=== PATIENT | male | born 1945 | race Caucasian/White ===

== ENCOUNTER 2019-01-03 17:26 | Inpatient (IN) | payer MEDICARE, OTHER ==
[~2019-01-03] VITALS: Ht 180.3 cm; Wt 131.5 kg
[2019-01-03 17:57] LABS: BASOPHILS # (AUTO) 0.1 (0.0-0.1); BASOPHILS % 0.6 % (0.0-1.0); EOSINOPHILS # (AUTO) 0.2 (0.0-0.4); EOSINOPHILS % 1.8 % (0.0-6.0); LYMPHOCYTES # (AUTO) 2.1 (1.0-3.2); MEAN CORPUSCULAR HEMOGLOBIN 28.3 pg (28-32); MEAN CORPUSCULAR HGB CONC 33.3 g/dL (31-35); MONOCYTES # (AUTO) 0.8 (0.2-0.8); MONOCYTES % 8.1 % (4.4-11.3); NEUTROPHILS # (AUTO) 6.6 (2.1-6.9); NEUTROPHILS % 67.6 % (38.7-80.0); PLATELET COUNT 248 x10e3/uL (140-360); RED BLOOD COUNT 4.59 x10e6/uL (4.3-5.7)
[2019-01-03] MEDS ORDERED: SODIUM CHLORIDE 0.9% 1000ML 1,000 ML IV SCH (18:03)
[2019-01-03 18:08] LABS: INR 1.02; PROTHROMBIN TIME 13.9 seconds (11.9-14.5)
[2019-01-03 18:18] LABS: ALANINE AMINOTRANSFERASE 18 IU/L (0-55); ALBUMIN 3.8 g/dL (3.5-5.0); ALBUMIN/GLOBULIN RATIO 1.3 (0.8-2.0); ALKALINE PHOSPHATASE 87 IU/L (40-150); ANION GAP 15.1 mmol/L (8-16); BLOOD UREA NITROGEN 15 mg/dL (7-26); BUN/CREATININE RATIO 19 (6-25); CALCIUM 9.6 mg/dL (8.4-10.2); CARBON DIOXIDE 24 mmol/L (22-29); CHLORIDE 104 mmol/L (98-107); EST GLOMERULAR FILTRATION RATE > 60 ML/MIN (60-); GLUCOSE 109 mg/dL (74-118); POTASSIUM 4.1 mmol/L (3.5-5.1); SODIUM 139 mmol/L (136-145)
[2019-01-03 19:30] VITALS: BP 132/74
[2019-01-03 20:00] VITALS: BP 132/74
[2019-01-03] MEDS ORDERED: HYDRALAZINE HCL 20 MG/ML VIAL IV PRN (20:00)
[2019-01-03] MEDS ORDERED: ACETAMINOPHEN/CODEINE 300MG - 30MG TAB PO PRN (20:00)
[2019-01-03] MEDS ORDERED: ACETAMINOPHEN 325 MG TAB PO PRN (20:00)
[2019-01-03 22:25] VITALS: BP 132/74
[2019-01-04] VITALS (8 sets, daily range): BP systolic 115–156; BP diastolic 57–80
[2019-01-04 02:43] LABS: HEMATOCRIT 31.7 % (38.2-49.6); HEMOGLOBIN 10.4 g/dL (14.0-18.0)
[2019-01-04 03:01] LABS: CREATINE KINASE MB 1.5 ng/mL (0-5.0)
[2019-01-04] MEDS ORDERED: DILTIAZEM HCL 5 MG/ML 5 ML VIAL IV STA ×2 (04:02→07:01)
[2019-01-04] MEDS ORDERED: SODIUM CHLORIDE 0.9% 250ML 250 ML IV ONE (06:00)
[2019-01-04 06:14] LABS: BASOPHILS # (AUTO) 0.1 (0.0-0.1); BASOPHILS % 0.3 % (0.0-1.0); EOSINOPHILS % 0.1 % (0.0-6.0); HEMATOCRIT 27.3 % (38.2-49.6); HEMOGLOBIN 8.9 g/dL (14.0-18.0); LYMPHOCYTES # (AUTO) 1.4 (1.0-3.2); MEAN CORPUSCULAR HEMOGLOBIN 28.3 pg (28-32); MEAN CORPUSCULAR HGB CONC 32.6 g/dL (31-35); MEAN CORPUSCULAR VOLUME 86.9 fL (81-99); MONOCYTES # (AUTO) 0.7 (0.2-0.8); MONOCYTES % 4.1 % (4.4-11.3); NEUTROPHILS # (AUTO) 13.5 (2.1-6.9); NEUTROPHILS % 84.8 % (38.7-80.0); PLATELET COUNT 286 x10e3/uL (140-360); RED BLOOD COUNT 3.14 x10e6/uL (4.3-5.7); RED CELL DISTRIBUTION WIDTH 14.1 % (11.7-14.4)
[2019-01-04 06:37] LABS: ANION GAP 16.2 mmol/L (8-16); BLOOD UREA NITROGEN 17 mg/dL (7-26); BUN/CREATININE RATIO 20 (6-25); CALCIUM 8.4 mg/dL (8.4-10.2); CARBON DIOXIDE 17 mmol/L (22-29); CHLORIDE 110 mmol/L (98-107); CREATININE, SERUM 0.87 mg/dL (0.72-1.25); EST GLOMERULAR FILTRATION RATE > 60 ML/MIN (60-); GLUCOSE 190 mg/dL (74-118); POTASSIUM 4.2 mmol/L (3.5-5.1); SODIUM 139 mmol/L (136-145)
[2019-01-04] MEDS ORDERED: METOPROLOL TARTRATE 50 MG TAB PO ONE (07:15)
[2019-01-04] MEDS ORDERED: GABAPENTIN300 MG PO (07:57)
[2019-01-04] MEDS ORDERED: DIGOXIN125 MCG PO (07:57)
[2019-01-04] MEDS ORDERED: ELIQUIS PO (07:57)
[2019-01-04] MEDS ORDERED: FLOMAX0.4 MG PO (07:57)
[2019-01-04] MEDS ORDERED: TIZANIDINE HCL4 MG PO (07:57)
[2019-01-04] MEDS ORDERED: METOPROLOL TART50 MG PO (07:57)
[2019-01-04] MEDS ORDERED: PLAVIX75 MG PO (07:57)
[2019-01-04] MEDS ORDERED: ATORVASTATIN CA20 MG PO (07:57)
[2019-01-04] MEDS: PANTOPRAZOLE 40 MG 10ML VIAL IV SCH (08:12)
[2019-01-04 10:51] LABS: HEMATOCRIT 28.3 % (38.2-49.6); HEMOGLOBIN 9.1 g/dL (14.0-18.0)
[2019-01-04] MEDS ORDERED: SODIUM CHLORIDE 0.9% 250ML 250 ML ONE ×2 (15:31→22:52)
[2019-01-04] MEDS: METOPROLOL TARTRATE 50 MG TAB PO SCH (17:26)
[2019-01-04] MEDS: GABAPENTIN 300 MG CAP PO SCH (17:26)
[2019-01-04] MEDS ORDERED: PEG (High)/E-LYTE SOLN 4,000 ML BTL PO SCH (18:30)
[2019-01-04 19:14] LABS: HEMOGLOBIN 7.3 g/dL (14.0-18.0)
--- NOTE | 2019-01-04 20:25 | History and Physical ---
PRIMARY CARE DOCTOR: Dr. Kirkpatrick at [facility]. LIBRARY SCIENCE PROFESSOR: Dr. Sidhu from [facility] as well. CONSULTING PHYSICIANS: 1. Sarika Harris MD with Cardiology. 2. Baltazar Nathan MD with GI specialist. CHIEF COMPLAINT: Bright red blood per rectum, status post polypectomy on 12/24/2018. HISTORY OF PRESENT ILLNESS: This is a 73-year-old male with past medical history of atrial fibrillation, high cholesterol, PVD, CAD status post stent x3, and sleep apnea, presented to the ER with complaints of bright red rectal bleeding around 3:00 p.m. yesterday. He reports having a colonoscopy on December 24, 2018, where he had polyps taken out about 10. He is on Plavix and Eliquis for atrial fibrillation. He also was told to resume his blood thinners 3 day later, which was on the 27 of December and so he has been taking Eliquis and Plavix for the past 7 days before he noticed the bleeding yesterday. He denies any abdominal pain, any fever, chills, nausea, vomiting, dizziness, shortness of breath, palpitations or chest pains. No hematuria noted or dysuria. In the ER upon admission, his hemoglobin was 13.0. Creatinine 0.8, BUN 15, potassium 4.1, sodium 139, troponin negative. PT, INR were within normal limits. APTT was 37, but the patient is currently on Eliquis. So, he is admitted in the hospital for observation about GI bleed. Consent reviewed. PAST MEDICAL HISTORY: 1. Atrial fibrillation with RVR. 2. History of PVD. 3. CAD with stent x3. 4. Sleep apnea. PAST SURGICAL HISTORY: Cardiac stents x3 and tonsillectomy. FAMILY HISTORY: He reports mother has uterine cancer and does not know about his father. SOCIAL HISTORY: He quit smoking 25 years ago and smoked for 30 years about 2 packs per day. He reports occasional alcohol use, beer about 3 to 4 per week or when going out and he denies any illicit drug use. REVIEW OF SYSTEMS: GENERAL: No acute distress. HEENT: No mouth sores. LUNGS: No shortness of breath. HEART: No palpitation or chest pain. GI: Had melena, bright red blood. NEUROLOGIC: Alert and oriented. MUSCULOSKELETAL: No pain with range of motion. SKIN: Intact. No gross abnormality. PHYSICAL EXAMINATION: VITAL SIGNS: Temperature is 95.8, pulse is 137, blood pressure is 119/60, respirations 20, SpO2 98%. LABORATORY DATA: Sodium 139, potassium 4.2, CO2 is 17, creatinine 0.87. White blood cells 15.9, hemoglobin 9.1, troponin 0.002. PT 13.9, PTT 37, INR 1.02. GENERAL: Appears to be in no acute distress. HEENT: Normocephalic, atraumatic. LUNGS: Clear to auscultation. CARDIOVASCULAR: Irregular rate and rhythm. GI: Mild abdominal discomfort. He has still bright red bowel movements x4. NEUROLOGIC: Alert, awake, oriented x3. MUSCULOSKELETAL: Moves all extremities. SKIN: Dry and discoloration noted in the lower extremities due to PVD. IMPRESSION: 1. Acute GI bleed, status post recent polypectomy. 2. Atrial fibrillation with rapid ventricular response. 3. Coronary artery disease, status post stent x3. 4. Hyperlipidemia. 5. Peripheral vascular disease. 6. Sleep apnea. PLAN: We will continue to monitor H and H closely, IV fluids for hydration, resume his home medications for atrial fibrillation, metoprolol and digoxin were restarted. We will hold anticoagulation until seen by GI. GI has been consulted and Cardiology also for atrial fibrillation with RVR. He was given Cardizem IV times x1, further recommendations to follow. Dictated by LEONCIO Condon Zeferino Her MD MY/MODL /[id number]
[2019-01-04] MEDS ORDERED: ATORVASTATIN 20 MG TAB PO SCH (21:00)
[2019-01-04] MEDS ORDERED: FUROSEMIDE INJ 10 MG/ML 2 ML VIAL IV ONE (22:15)
--- NOTE | 2019-01-04 23:11 | Consultation ---
DATE OF CONSULTATION: 01/04/2019 Cardiology Consultation REASON FOR CONSULTATION: Atrial fibrillation. HISTORY OF PRESENT ILLNESS: Mr. Marquez is a 73-year-old gentleman with past medical history of hypertension, hypercholesteremia, BPH, CAD with prior history of PCI x3 most recently in May 2018, and chronic atrial fibrillation, on systemic anticoagulant therapy with Eliquis. He was in his usual state of health up until December 24, 2018. He stopped his anti-platelet and anticoagulant therapy for a prescribed amount of time and had a colonoscopy on December 24, 2018; three days afterwards the patient restarted anticoagulant therapy. He was in his usual state of health up until yesterday where he started having cramping abdominal pain. Eventually, this progressed and he started having loose stools associated with severe lower quadrant irritation and upon wiping he noted blood clots and bright red blood per rectum. He continuously had ongoing bleeding throughout the day and last bowel movement an hour ago, still with some blood clots. His last anticoagulant dose with Eliquis was yesterday morning and his last Plavix dose was the night before that. He has received so for platelet transfusion and the patient feels okay. Earlier on in the night, the patient had complaint of dizziness upon standing and felt that his heart was racing and was in atrial fibrillation with rapid ventricular response. Currently, heart rate is under more reasonable control in the s. He is on digoxin and metoprolol therapy. Thus far he knows, he remains in chronic atrial fibrillation. The patient denies any chest pain. He has exertional dyspnea, class III; two pillow use; no PND. PAST MEDICAL HISTORY: 1. Hypertension, essential. 2. Hypercholesteremia. 3. CAD with prior history of PCI x3, most recently in May 2018. 4. History of chronic atrial fibrillation, on anticoagulant therapy with Eliquis. PAST SURGICAL HISTORY: 1. History of tonsillectomy. 2. History of knee aspiration as a kid. 3. History of stents x3. 4. History of colonoscopy, most recently on December 24, 2018. FAMILY HISTORY: Mother at 81 years of age from old age. Father in his mid 70s of unknown cause. SOCIAL HISTORY: He is a former smoker, quit 25 years ago. Denies any alcohol or illicit drug use. ALLERGIES: NO KNOWN DRUG ALLERGIES. HOME MEDICATIONS: Include: 1. Flomax 0.4 mg daily. 2. Metoprolol 100 mg b.i.d. 3. Atorvastatin 20 mg daily. 4. Digoxin 0.125 mg daily. 5. Plavix 75 mg daily. 6. Eliquis 5 mg p.o. b.i.d. REVIEW OF SYSTEMS: GENERAL: Denies any fevers or chills. Positive for fatigue and malaise. HEENT: No headaches, visual complaints, sore throat, or stuffy nose. RESPIRATORY: Denies any pleuritic chest pain. He has class III exertional dyspnea. CARDIOVASCULAR: As per HPI. GI: Positive for abdominal pain, lower abdominal cramping, and bright red blood prior per rectum noted. No melena. No vomiting. Heme positive for bleeding and easy bruising. : Denies any dysuria, pyuria, or change in urinary frequency. MUSCULOSKELETAL: Positive for arthritis and chronic venous stasis issues. ENDOCRINE: Denies any heat or cold intolerance. NEUROLOGIC: Denies any focal weakness. Positive for lightheadedness. No syncope. Remainder of review of systems negative otherwise as mentioned. PHYSICAL EXAMINATION: VITAL SIGNS: Height of 71 inches, weight of 283 pounds, BMI is 39.5. Temperature of 97.5, pulse 94, respiratory rate of 16, blood pressure 142/74, and O2 saturation 100% on room air. GENERAL: This is a well-nourished, well-developed gentleman, who is currently in no apparent distress. HEENT: Normocephalic and atraumatic. Pupils are equal, round, and reactive to light. Extraocular movements are intact. Oropharynx is clear. NECK: No elevation of jugular venous pulsation. No carotid bruits. CARDIOVASCULAR: Irregularly irregular rate and rhythm. Normal S1, S2. Soft 2/6 systolic murmur at the left lower sternal border. LUNGS: Show diminished bibasilar breath sounds and no crackles. ABDOMEN: Soft, nontender, obese, with hyperactive bowel sounds. No hepatosplenomegaly. BACK: No costovertebral angle tenderness. EXTREMITIES: Warm with 1+ pedal pulses. There is extensive lipo-dermatosclerotic changes, right greater than left lower extremity with 1+ edema as well. NEUROLOGIC: Cranial nerves II through XII are grossly intact. Strength is 5/5, grossly nonfocal. PSYCH: Normal fluent speech. Appropriate affect. No anxiety or delusions. LABORATORY DATA: White count of 16, hemoglobin 8.9, hematocrit 27.3, and platelets of 286. Sodium 139, potassium 4.2, chloride 110, bicarb 17, BUN 17, creatinine 0.87, glucose of 190, and calcium of 8.4. AST 16, ALT 18, alkaline phosphatase 87, total protein 6.8, albumin 3.8. Troponin 0.002. INR is 1.02. IMAGING STUDIES: No imaging studies noted. EKG reveals atrial fibrillation, LVH and nonspecific ST-T wave changes in the lateral precordial leads. DIAGNOSES: 1. Dizziness, near syncope secondary to acute blood loss anemia. 2. Active lower gastrointestinal bleeding, likely etiology is anticoagulant use in the setting of recent multiple polypectomy procedures. 3. Coronary artery disease. 4. Chronic atrial fibrillation. 5. Obesity. RECOMMENDATIONS: 1. From a Cardiovascular standpoint, we will recommend continued rhythm control therapy for his atrial fibrillation with digoxin and metoprolol therapy. 2. The patient has already received platelet transfusion to hopefully help counteract some of the anti-platelet effect. 3. There is no good antidote for the Eliquis therapy and is supportive treatment for now. 4. Monitor serial hemoglobin and hematocrit. 5. Appreciate GI who is on-board for management aid. 6. We will continue holding anti-platelet, anticoagulant therapies at this time as this is not safe. 7. The patient is cleared for any necessary procedures to help his source control of his bleeding. 8. Telemetry monitoring. 9. Check echocardiogram to evaluate left ventricular function. 10. We will continue to follow. Thank you for this referral. MD SILVANO Brown/KAMILLA /[id number]
[2019-01-05] VITALS (7 sets, daily range): BP systolic 101–169; BP diastolic 51–70
[2019-01-05] MEDS ORDERED: FUROSEMIDE INJ 10 MG/ML 2 ML VIAL ONE (02:11)
--- NOTE | 2019-01-05 05:53 | Diagnostic Imaging Report ---
EXAMINATION: CHEST SINGLE (PORTABLE) COMPARISON: None INDICATION: ^preop cxr for colonoscopy today. ^20190105 ^0525 ^Y DISCUSSION: Frontal view of the chest obtained at 0522 hours. HEART AND MEDIASTINUM: The heart is enlarged. The aorta is tortuous with calcifications of the arch LINES: None. LUNGS: The lungs are well inflated and clear. No pneumonia or pulmonary edema. PLEURA: No pleural effusion or pneumothorax. BONES AND SOFT TISSUES: No focal osseous lesion. The soft tissues are normal. IMPRESSION: Cardiomegaly without vascular congestion. No acute pulmonary process. Signed by: Dr. Flora Ferraro MD on 01/05/2019 5:50 AM
[2019-01-05 06:08] LABS: BASOPHILS # (AUTO) 0.1 (0.0-0.1); BASOPHILS % 0.4 % (0.0-1.0); EOSINOPHILS # (AUTO) 0.1 (0.0-0.4); EOSINOPHILS % 0.4 % (0.0-6.0); HEMATOCRIT 26.1 % (38.2-49.6); HEMOGLOBIN 8.9 g/dL (14.0-18.0); LYMPHOCYTES # (AUTO) 2.8 (1.0-3.2); LYMPHOCYTES % 16.6 % (18.0-39.1); MEAN CORPUSCULAR HEMOGLOBIN 29.6 pg (28-32); MEAN CORPUSCULAR HGB CONC 34.1 g/dL (31-35); MEAN CORPUSCULAR VOLUME 86.7 fL (81-99); MONOCYTES # (AUTO) 1.6 (0.2-0.8); MONOCYTES % 9.3 % (4.4-11.3); NEUTROPHILS # (AUTO) 11.9 (2.1-6.9); NEUTROPHILS % 71.6 % (38.7-80.0); PLATELET COUNT 274 x10e3/uL (140-360); RED BLOOD COUNT 3.01 x10e6/uL (4.3-5.7); RED CELL DISTRIBUTION WIDTH 14.6 % (11.7-14.4)
[2019-01-05 06:26] LABS: ANION GAP 18.7 mmol/L (8-16); BLOOD UREA NITROGEN 16 mg/dL (7-26); BUN/CREATININE RATIO 20 (6-25); CALCIUM 8.8 mg/dL (8.4-10.2); CARBON DIOXIDE 23 mmol/L (22-29); CHLORIDE 99 mmol/L (98-107); CREATININE, SERUM 0.82 mg/dL (0.72-1.25); EST GLOMERULAR FILTRATION RATE > 60 ML/MIN (60-); GLUCOSE 132 mg/dL (74-118); POTASSIUM 3.7 mmol/L (3.5-5.1); SODIUM 137 mmol/L (136-145)
[2019-01-05] MEDS: METOPROLOL TARTRATE 50 MG TAB PO SCH ×2 (08:40→16:53)
[2019-01-05] MEDS: DIGOXIN 0.125 MG TAB PO SCH (08:40)
[2019-01-05] MEDS: TAMSULOSIN HCL 0.4 MG CAP PO SCH (08:40)
[2019-01-05] MEDS: GABAPENTIN 300 MG CAP PO SCH ×2 (08:41→16:53)
[2019-01-05 09:19] LABS: BASOPHILS % 0.3 % (0.0-1.0); EOSINOPHILS # (AUTO) 0.1 (0.0-0.4); EOSINOPHILS % 0.7 % (0.0-6.0); HEMATOCRIT 23.2 % (38.2-49.6); HEMOGLOBIN 7.9 g/dL (14.0-18.0); LYMPHOCYTES # (AUTO) 1.9 (1.0-3.2); LYMPHOCYTES % 14.6 % (18.0-39.1); MEAN CORPUSCULAR HEMOGLOBIN 29.3 pg (28-32); MEAN CORPUSCULAR HGB CONC 34.1 g/dL (31-35); MEAN CORPUSCULAR VOLUME 85.9 fL (81-99); MONOCYTES # (AUTO) 1.2 (0.2-0.8); MONOCYTES % 9.4 % (4.4-11.3); NEUTROPHILS # (AUTO) 9.4 (2.1-6.9); NEUTROPHILS % 71.8 % (38.7-80.0); PLATELET COUNT 214 x10e3/uL (140-360); RED CELL DISTRIBUTION WIDTH 14.5 % (11.7-14.4)
[2019-01-05 09:44] LABS: ANION GAP 15.5 mmol/L (8-16); BLOOD UREA NITROGEN 15 mg/dL (7-26); BUN/CREATININE RATIO 20 (6-25); CALCIUM 8.4 mg/dL (8.4-10.2); CARBON DIOXIDE 25 mmol/L (22-29); CHLORIDE 98 mmol/L (98-107); CREATININE, SERUM 0.75 mg/dL (0.72-1.25); EST GLOMERULAR FILTRATION RATE > 60 ML/MIN (60-); GLUCOSE 114 mg/dL (74-118); POTASSIUM 3.5 mmol/L (3.5-5.1); SODIUM 135 mmol/L (136-145)
[2019-01-05] MEDS ORDERED: SODIUM CHLORIDE 0.9% 250ML 250 ML ONE (10:37)
[2019-01-05] MEDS: PANTOPRAZOLE 40 MG 10ML VIAL IV SCH (11:23)
--- NOTE | 2019-01-05 14:13 | Progress Note ---
DATE: 01/05/2019 CONSULTING PHYSICIANS: 1. Dr. Sarika Harris with Cardiology. 2. Dr. Baltazar Nathan with GI. CHIEF COMPLAINT: Rectal bleeding. REVIEW OF SYSTEMS: GENERAL: In no acute distress. HEENT: No visual loss or head trauma. LUNGS: Shortness of breath when lying down. No cough. CARDIOVASCULAR: No palpitations or chest discomfort. ABDOMEN: No nausea, vomiting. Completed bowel prep for colonoscopy. NEURO: Alert and oriented. MUSCULOSKELETAL: No weakness or dizziness. SKIN: Intact and dry. PHYSICAL EXAMINATION: VITAL SIGNS: Temperature 96.0, pulse is 106, blood pressure 169/70, respirations 20, and SpO2 is 98% on 2 L of oxygen via nasal cannula. GENERAL: Alert, awake, and in no acute distress. HEENT: Normocephalic, atraumatic. PERRLA. LUNGS: Diminished breath sounds. CARDIOVASCULAR: Irregular heart rate and rhythm. ABDOMEN: Soft and nontender, but obese. NEURO: Alert, awake, and oriented x3. MUSCULOSKELETAL: Active ROM, no edema noted in the extremities. SKIN: Dry and intact. LABORATORY DATA: Sodium 135, potassium 3.5, chloride 98, CO2 of 25, BUN is 15, creatinine is 0.75. WBCs 13.0, hemoglobin 7.9, hematocrit 23.2, and platelet 214. Chest x-ray, cardiomegaly without vascular congestion or no acute pulmonary process. IMPRESSION: 1. Acute gastrointestinal bleed, status post 2 units of PRBCs and 2 units of platelets. 2. Atrial fibrillation with rapid ventricular response. 3. Coronary artery disease with history of stents. 4. High cholesterol. 5. Peripheral vascular disease. 6. History of sleep apnea. PLAN: Plan is to continue to keep the patient n.p.o. for colonoscopy today per GI. We will continue to monitor H and H closely. Hemoglobin is 7.9, we will repeat one in 6 hours and transfuse as needed. He is status post 2 units of PRBCs and 2 units of platelets. We will hold all anticoagulation for now. Further recommendations to follow. Dictated by LEONCIO Condon Alexiaching Justin Her MD MY/MODL /[id number]
[2019-01-05] MEDS ORDERED: GLUCAGON FOR INJ 1 MG VIAL ONE (17:44)
[2019-01-05] MEDS ORDERED: PROPOFOL IV EMULSION 10 MG/ML 50 ML VIAL ONE (17:44)
[2019-01-05] MEDS ORDERED: LIDOCAINE HCL 2% LOCAL INJ 5 ML SDV VIAL INJ ONE (17:44)
[2019-01-05] MEDS ORDERED: FENTANYL CITRATE/PF 100MCG/2 ML INJ ONE (18:29)
[2019-01-05] MEDS ORDERED: ATORVASTATIN 40 MG TAB PO SCH (21:00)
[2019-01-06] VITALS (7 sets, daily range): BP systolic 105–144; BP diastolic 51–79
--- NOTE | 2019-01-06 01:47 | Operative Report ---
DATE OF PROCEDURE: 01/05/2019 SURGEON: Baltazar Nathan MD PROCEDURE: Colonoscopy with hemoclip of large polypectomy site. OTHER PRIMARY CARE PHYSICIAN SERVICE: Dr. Mathieu Kirkpatrick. MEDICATIONS: The patient was done under MAC, please see anesthesiologist's note. INDICATION FOR PROCEDURES: Post polypectomy bleed. PROCEDURE IN DETAIL: With the patient in the left lateral decubitus position, a flexible fiberoptic Olympus colonoscope was inserted into the rectum with ease and advanced all the way to the cecum. A large polypectomy site was noted in the cecum with a visible vessel in the crater along with 2 flat red spots. There was no active bleeding. The site was closed with 3 size 16 hemoclips. The scope was then withdrawn slowly and diverticular disease was noted throughout the colon. No actively bleeding site was noted. The scope was then retroflexed into the distal rectum and small internal hemorrhoids were noted, none of which was actively bleeding. The scope was then straightened out, it was subsequently withdrawn. The patient tolerated the procedure well. IMPRESSION: 1. Large polypectomy site cecum with stigmata of recent hemorrhage, hemoclipped with size 16 clips x3. 2. Pandiverticulosis. 3. Internal hemorrhoids, none actively bleeding. PLAN: Follow H and H. Initiate full liquid diet. Baltazar Nathan MD [facility]MODL /[id number] cc: MD Zeferino Aponte MD
[2019-01-06] MEDS: PANTOPRAZOLE 40 MG 10ML VIAL IV SCH (08:15)
[2019-01-06] MEDS: TAMSULOSIN HCL 0.4 MG CAP PO SCH (08:15)
[2019-01-06] MEDS: METOPROLOL TARTRATE 50 MG TAB PO SCH (08:16)
[2019-01-06] MEDS: DIGOXIN 0.125 MG TAB PO SCH (08:16)
[2019-01-06] MEDS: GABAPENTIN 300 MG CAP PO SCH (08:16)
[2019-01-06 09:38] LABS: BASOPHILS # (AUTO) 0.1 (0.0-0.1); BASOPHILS % 0.4 % (0.0-1.0); EOSINOPHILS # (AUTO) 0.1 (0.0-0.4); EOSINOPHILS % 0.8 % (0.0-6.0); HEMOGLOBIN 7.7 g/dL (14.0-18.0); LYMPHOCYTES # (AUTO) 1.6 (1.0-3.2); LYMPHOCYTES % 13.5 % (18.0-39.1); MEAN CORPUSCULAR HEMOGLOBIN 29.4 pg (28-32); MEAN CORPUSCULAR HGB CONC 33.5 g/dL (31-35); MEAN CORPUSCULAR VOLUME 87.8 fL (81-99); MONOCYTES % 8.7 % (4.4-11.3); NEUTROPHILS # (AUTO) 8.9 (2.1-6.9); NEUTROPHILS % 74.5 % (38.7-80.0); PLATELET COUNT 256 x10e3/uL (140-360); RED BLOOD COUNT 2.62 x10e6/uL (4.3-5.7); RED CELL DISTRIBUTION WIDTH 14.9 % (11.7-14.4)
[2019-01-06 09:51] LABS: ANION GAP 15.3 mmol/L (8-16); BLOOD UREA NITROGEN 10 mg/dL (7-26); BUN/CREATININE RATIO 12 (6-25); CALCIUM 8.8 mg/dL (8.4-10.2); CARBON DIOXIDE 23 mmol/L (22-29); CHLORIDE 104 mmol/L (98-107); CREATININE, SERUM 0.81 mg/dL (0.72-1.25); EST GLOMERULAR FILTRATION RATE > 60 ML/MIN (60-); GLUCOSE 126 mg/dL (74-118); POTASSIUM 3.3 mmol/L (3.5-5.1); SODIUM 139 mmol/L (136-145)
[2019-01-06 10:19] LABS: BAND NEUTROPHILS % (MANUAL) 3 %; LYMPHOCYTES % (MANUAL) 17 % (19-48); MONOCYTES % (MANUAL) 12 % (3.4-9.0); NEUTROPHILS % (MANUAL) 68 % (40-74)
[2019-01-06 10:20] LABS: PLATELET ESTIMATE ADEQUATE; PLATELET MORPHOLOGY COMMENT NORMAL; RBC MORPHOLOGY COMMENT NORMAL
[2019-01-06] MEDS ORDERED: POTASSIUM CHLORIDE 20 MEQ TAB CR PO NR (12:00)
[2019-01-06 15:33] LABS: BASOPHILS % 0.3 % (0.0-1.0); EOSINOPHILS # (AUTO) 0.1 (0.0-0.4); EOSINOPHILS % 0.9 % (0.0-6.0); HEMOGLOBIN 7.6 g/dL (14.0-18.0); LYMPHOCYTES # (AUTO) 2.2 (1.0-3.2); LYMPHOCYTES % 18.6 % (18.0-39.1); MEAN CORPUSCULAR HEMOGLOBIN 29.3 pg (28-32); MEAN CORPUSCULAR VOLUME 88.8 fL (81-99); MONOCYTES # (AUTO) 1.1 (0.2-0.8); MONOCYTES % 9.6 % (4.4-11.3); NEUTROPHILS % 68.6 % (38.7-80.0); PLATELET COUNT 226 x10e3/uL (140-360); RED BLOOD COUNT 2.59 x10e6/uL (4.3-5.7)
--- NOTE | 2019-01-07 05:56 | Discharge Summary ---
CONSULTING PHYSICIANS: Dr. Sarika Harris for Cardiology and Dr. Baltazar Nathan for GI. PRIMARY CARE DOCTOR: Dr. Kirkpatrick at [facility] and GI is Dr. Sidhu also with [facility]. FINAL DISCHARGE DIAGNOSES: 1. Acute gastrointestinal bleed, status post colonoscopy and polypectomy. 2. Atrial fibrillation with RVR. 3. History of coronary artery disease with stents. 4. High cholesterol. 5. Peripheral vascular disease. 6. Sleep apnea. PROCEDURES: Colonoscopy with hemoclipped with size 16 clips, also transfused 2 units of PRBCs and 2 units of platelets prior to the colonoscopy. HISTORY: Per HPI. HOSPITAL COURSE: This is a 73-year-old who presented with bright red rectal bleeding. He reports having polypectomy on December 24, 2018. He was restarted on his anticoagulation for his atrial fibrillation prophylaxis about a week ago and was doing well until the day before yesterday when he noticed rectal bleeding. GI was consulted. We monitored his hemoglobin closely and he was given 2 units of PRBCs and 2 units of platelets. He had atrial fibrillation with RVR with a heart rate in the 130s and sustaining, so Cardiology was consulted and was restarted on his digoxin and beta blockers, which helped to control the rate. GI also did a colonoscopy with hemoclipped with size 16 clips. He was monitored overnight with close monitoring of his hemoglobin. His hemoglobin today is 7.6. He is advised to stop taking his anticoagulation until seen by his GI at [facility] and his mechanical press operator. He is eager to go home. He had an echocardiogram done with an EF of 65%. PHYSICAL EXAMINATION: VITAL SIGNS: Temperature 97.7, pulse of 78, blood pressure is 105/51, respirations 19, and SpO2 is 96%. GENERAL: No acute distress. Obese. NECK: Supple. LUNGS: Clear to auscultation. CARDIOVASCULAR: Irregular heart rate and rhythm. HEENT: Normocephalic, atraumatic. ABDOMEN: Soft and nontender. Obese. EXTREMITIES: Moves all extremities. No pain. NEUROLOGIC: Alert, awake, oriented x3. LABORATORY DATA: Sodium 139, potassium 3.3, creatinine 0.81, BUN 10. WBC 11.8, hemoglobin 7.6, hematocrit 23 and platelets are 256. CONDITION AT DISCHARGE: Improved and stable. DISCHARGE MEDICATIONS: See medication reconciliation. FOLLOW UP: Follow up with PCP and his GI doctor at [facility]. Follow up also with his mechanical press operator at [facility]. A total time for discharge is 33 minutes. LEONCIO Condon/KAMILLA /[id number] cc: [facility]
== END 2019-01-06 17:09 | disposition home or self-care (01) | DRG 920 ==
LOC: ER 17:30 → ERHOLD 18:14 → MED/SURG3 19:25 → OBSVTOIN 01-04 17:03 → MED/SURG 01-04 17:21 → MED/SURG3 01-04 17:22
PROVIDERS: ADMIT Internal Medicine; ATTEND Internal Medicine
PROC: 30233R1 Transfusion of Nonautologous Platelets into Peripheral Vein, Percutaneous Approach (ICD-10-PCS; 2019-01-04)
PROC: 30233N1 Transfusion of Nonautologous Red Blood Cells into Peripheral Vein, Percutaneous Approach (ICD-10-PCS; 2019-01-04)
PROC: 0W3P8ZZ Control Bleeding in Gastrointestinal Tract, Via Natural or Artificial Opening Endoscopic (ICD-10-PCS; principal; 2019-01-05 15:30)
DX: K91.840 Postprocedural hemorrhage of a digestive system organ or structure following a digestive system procedure (principal); D62 Acute posthemorrhagic anemia; Z68.41 Body mass index [BMI] 40.0-44.9, adult; K63.5 Polyp of colon; I48.91 Unspecified atrial fibrillation; Z79.01 Long term (current) use of anticoagulants; I25.10 Atherosclerotic heart disease of native coronary artery without angina pectoris; Z95.5 Presence of coronary angioplasty implant and graft; E78.00 Pure hypercholesterolemia, unspecified; I49.3 Ventricular premature depolarization; G47.30 Sleep apnea, unspecified; N40.0 Benign prostatic hyperplasia without lower urinary tract symptoms; I48.2 Chronic atrial fibrillation; E66.9 Obesity, unspecified; K57.90 Diverticulosis of intestine, part unspecified, without perforation or abscess without bleeding; K64.8 Other hemorrhoids; Z87.891 Personal history of nicotine dependence
CPT/HCPCS: 36415; 45378; 71045; 80048; 80053; 82550; 82553; 82948; 84484; 85014; 85018; 85025; 85610; 85730; 86850; 86900; 86920; 93005; 93306; 99284; G0378; J1610; J1940; J2001; J3010; J7030; J7050; P9016; P9034

== ENCOUNTER 2021-10-16 21:40 | Emergency (ER) | payer MEDICARE ==
[~2021-10-16] VITALS: Ht 180.3 cm; Wt 131.5 kg
[~2021-10-16 21:40] MED LIST: ATORVASTATIN CA20 MG PO; DIGOXIN125 MCG PO; ELIQUIS PO; FLOMAX0.4 MG PO; GABAPENTIN300 MG PO; METOPROLOL TART50 MG PO; PLAVIX75 MG PO; TIZANIDINE HCL4 MG PO
[2021-10-16] MEDS ORDERED: Morphine 4mg Syringe 4 MG/ML INJ IV STA (21:54)
[2021-10-16] MEDS ORDERED: ACETAMINOPHEN 325 MG TAB PO STA (21:54)
[2021-10-16] MEDS ORDERED: ONDANSETRON HCL INJ 2MG/ML 2ML 2 MG/ML VIAL IV STA (21:54)
[2021-10-16] MEDS ORDERED: SODIUM CHLORIDE 0.9% 1000ML 1,000 ML IV STA (21:54)
[2021-10-16] MEDS ORDERED: KETOROLAC TROMETHAMINE 30 MG/ML VIAL IV STA (21:59)
[2021-10-16 22:02] LABS: BASOPHILS % 0.4 % (0.0-1.0); EOSINOPHILS # (AUTO) 0.2 (0.0-0.4); EOSINOPHILS % 1.4 % (0.0-6.0); HEMATOCRIT 43.5 % (38.2-49.6); HEMOGLOBIN 14.4 g/dL (14.0-18.0); LYMPHOCYTES # (AUTO) 1.4 (1.0-3.2); LYMPHOCYTES % 12.7 % (18.0-39.1); MEAN CORPUSCULAR HEMOGLOBIN 29.2 pg (28-32); MEAN CORPUSCULAR HGB CONC 33.1 g/dL (31-35); MEAN CORPUSCULAR VOLUME 88.2 fL (81-99); MONOCYTES # (AUTO) 0.7 (0.2-0.8); MONOCYTES % 6.6 % (4.4-11.3); NEUTROPHILS # (AUTO) 8.6 (2.1-6.9); NEUTROPHILS % 78.4 % (38.7-80.0); PLATELET COUNT 238 x10e3/uL (140-360); RED BLOOD COUNT 4.93 x10e6/uL (4.3-5.7); RED CELL DISTRIBUTION WIDTH 14.3 % (11.7-14.4)
[2021-10-16 22:28] LABS: CLARITY,URINE CLOUDY (CLEAR); COLOR,URINE AMBER (YELLOW); LEUKOCYTE ESTERASE ,URINE TRACE (NEGATIVE); NITRITE,URINE NEGATIVE (NEGATIVE); PROTEIN,URINE DIPSTICK >=300 (NEGATIVE)
[2021-10-16 22:29] LABS: KETONES,URINE TRACE (NEGATIVE); URINE UROBILINOGEN 1 mg/dL (0.2 - 1)
[2021-10-16 22:34] LABS: AMORPHOUS SEDIMENT,URINE MODERATE (FEW); BACTERIA,URINE FEW /HPF; EPITHELIAL CELLS,URINE FEW /LPF; RBC,URINE 21-50 /HPF (0-5)
[2021-10-16 22:51] LABS: ALBUMIN/GLOBULIN RATIO 1.1 (0.8-2.0); CALCIUM 9.3 mg/dL (8.4-10.2); CREATININE, SERUM 0.89 mg/dL (0.72-1.25)
[2021-10-16] MEDS ORDERED: IOPAMIDOL 370 MG/ML 100 ML INFUS..BTL INJ ONE (23:12)
[2021-10-17] MEDS ORDERED: KETOROLAC TROME10 MG PO (01:14)
[2021-10-17] MEDS ORDERED: FLOMAX0.4 MG PO (01:14)
[2021-10-17] MEDS ORDERED: ONDANSETRON ODT4 MG PO (01:14)
[2021-10-17 01:17] VITALS: BP 136/89
[2021-10-17] MEDS ORDERED: CIPRO500 MG PO (01:18)
== END 2021-10-17 01:24 | disposition home or self-care (01) ==
LOC: ER 21:46
DX: R10.31 Right lower quadrant pain (principal); I10 Essential (primary) hypertension; I48.91 Unspecified atrial fibrillation; Z95.5 Presence of coronary angioplasty implant and graft; E78.5 Hyperlipidemia, unspecified; N13.2 Hydronephrosis with renal and ureteral calculous obstruction; I73.9 Peripheral vascular disease, unspecified; R16.0 Hepatomegaly, not elsewhere classified; K76.0 Fatty (change of) liver, not elsewhere classified; K44.9 Diaphragmatic hernia without obstruction or gangrene; K57.30 Diverticulosis of large intestine without perforation or abscess without bleeding; Z79.899 Other long term (current) drug therapy
CPT/HCPCS: 36415; 74177; 80053; 81001; 83690; 85025; 99284; J1885; J7030; Q9967